=== PATIENT | male | born 1980 | race Caucasian/White ===

== ENCOUNTER 2017-10-18 16:53 | Emergency (ER) | payer BC, OTHER ==
[~2017-10-18] VITALS: Ht 182.9 cm; Wt 99.8 kg
[2017-10-18 18:11] LABS: STREP SCREEN NEGATIVE (NEGATIVE)
--- NOTE | 2017-10-18 18:47 | ER.PDOC ---
General Chief Complaint: General Complaint Stated Complaint: BODYACHES,FEVER,SORE THROAT Time seen by MD: 18:45 Source: patient Exam Limitations: no limitations History of Present Illness Initial Comments Cough, congestion and sore throat for 2 weeks Timing/Duration: gradual Severity: moderate Associated Symptoms: runny nose, sore throat, cough Allergies: Coded Allergies: No Known Allergies (Unverified , 10/18/17) Constitutional: no symptoms reported EENTM: see HPI Respiratory: see HPI Cardiovascular: no symptoms reported Gastrointestinal: no symptoms reported Genitourinary: no symptoms reported All Other Systems: Reviewed and Negative Past Medical History Medical History: no pertinent history Surgical History: appendectomy Social History Smoking: cigarettes, less than 1 pack/day Alcohol Use: none Drug Use: none Physical Exam General Appearance: alert, no distress Nose: nose nml Throat: pharynx nml, airway nml Neck: nml inspection, supple Respiratory: no resp.distress, breath sounds nml Abdomen: non-tender, no organomegaly CVS: reg rate & rhythm, heart sounds nml Skin: color nml, no rash, warm/dry Extremities: non-tender, nml ROM, no pedal edema NEURO/PSYCH: oriented x 3, CN's nml as tested, motor nml, sensation nml, mood/ affect nml Results/Orders Results/Orders Laboratory Tests Test 10/18/17 17:45 10/18/17 17:56 Influenza Virus Type A Antibody NEGATIVE (NEG) Influenza Virus Type B Antibody NEGATIVE (NEG) Group A Streptococcus Screen NEGATIVE (NEGATIVE) Monoscreen NEGATIVE (NEGATIVE) Departure Time of Disposition: 18:46 Disposition: 01 HOME, SELF-CARE Impression: Primary Impression: URI, acute Condition: Stable Referrals: PCP,UNKNOWN (PCP) PRIMARY CARE PROVIDER Additional Instructions: Mucinex Dm OTC as directed F/U with PCP in 3-4 days Duration or Time Spent with Pa: 60 mins MEGAN SMITH MD Oct 18, 2017 18:47
[2017-10-18 19:06] VITALS: BP 163/96
== END 2017-10-18 19:06 | disposition home or self-care (01) ==
LOC: ER 16:53
DX: J02.9 Acute pharyngitis, unspecified (principal); F17.210 Nicotine dependence, cigarettes, uncomplicated
CPT/HCPCS: 36415; 86308; 86710; 87070; 87880; 99284